=== PATIENT | male | born 1965 | race Caucasian/White ===

== ENCOUNTER 2019-10-29 23:00 | Emergency (ER) | payer SELFPAY ==
[~2019-10-29] VITALS: Ht 180 cm; Wt 70.0 kg
[2019-10-29] MEDS ORDERED: KETOROLAC 60 MG/2 ML VIAL IM STA (23:23)
[2019-10-29] MEDS ORDERED: ORPHENADRINE 60 MG/2 ML (NORFLEX) AMP IM STA (23:23)
[2019-10-29] MEDS ORDERED: ORPHENADRINE 60 MG/2 ML (NORFLEX) AMP ONE (23:27)
[2019-10-29] MEDS ORDERED: KETOROLAC 60 MG/2 ML VIAL ONE (23:27)
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
[2019-10-30 00:01] VITALS: BP 140/78
== END 2019-10-30 00:07 | disposition home or self-care (01) ==
LOC: EDUNIT# 23:00 → ER FS 23:03
DX: T14.8XXA Other injury of unspecified body region, initial encounter (principal); G35 Multiple sclerosis; F17.210 Nicotine dependence, cigarettes, uncomplicated; Z79.51 Long term (current) use of inhaled steroids; V89.2XXA Person injured in unspecified motor-vehicle accident, traffic, initial encounter
CPT/HCPCS: 96372; 99284